=== PATIENT | female | born 1990 | race Caucasian/White ===

== ENCOUNTER 2019-11-04 08:14 | Outpatient (CLI) | payer BC | END 2019-11-04 23:59 | disposition home or self-care (01) | LOC: CFH 08:14 | PROVIDERS: ATTEND Obstetrics & Gynecology | DX: Z34.82 Encounter for supervision of other normal pregnancy, second trimester (principal); Z3A.20 20 weeks gestation of pregnancy | CPT/HCPCS: 76805 ==

== ENCOUNTER 2020-03-08 10:54 | Outpatient (CLI) | payer BC ==
[~2020-03-08] VITALS: Ht 152.4 cm; Wt 63.1 kg
[2020-03-08 11:27] VITALS: BP 130/77
[2020-03-08] MEDS ORDERED: PREN1TAB10 PO (11:38)
== END 2020-03-08 11:58 | disposition home or self-care (01) ==
LOC: LDOP 10:54
PROVIDERS: ATTEND Obstetrics & Gynecology
DX: O26.893 Other specified pregnancy related conditions, third trimester (principal); Z3A.38 38 weeks gestation of pregnancy
CPT/HCPCS: 59025

== ENCOUNTER 2020-03-09 11:50 | Inpatient (IN) | payer BC ==
[~2020-03-09] VITALS: Ht 152.4 cm; Wt 63.2 kg
[~2020-03-09 11:50] MED LIST: PREN1TAB10 PO
[2020-03-09 12:17] VITALS: BP 120/67
[2020-03-09] MEDS ORDERED: LIDOCAINE 1%, 20ML ONE (14:44)
[2020-03-09] MEDS ORDERED: OXYTOCIN 30U/ 0.9% NaCL 500ML 500 ML ONE ×2 (14:44→21:33)
[2020-03-09] MEDS ORDERED: MISOPROSTOL 200 MCG TABLET ONE (14:44)
[2020-03-09] MEDS ORDERED: NEWBORN KIT ONE (14:44)
[2020-03-09] MEDS ORDERED: OXYTOCIN 30U/ 0.9% NaCL 500ML 500 ML IV ONE (15:00)
[2020-03-09] MEDS ORDERED: ONDANSETRON 2MG/ML, 2ML IVPush PRN (15:00)
[2020-03-09] MEDS ORDERED: TERBUTALINE 1 MG/ML, 1ML SQ PRN (15:00)
[2020-03-09] MEDS ORDERED: D5%-LACTATED RINGERS 1,000 ML IV SCH (15:00)
[2020-03-09] MEDS ORDERED: OXYTOCIN 30U/ 0.9% NaCL 500ML 500 ML IV PRN (15:00)
[2020-03-09] MEDS ORDERED: CALCIUM CARBONATE 500 MG TAB.CHEW PO PRN (15:00)
[2020-03-09] MEDS ORDERED: FENTANYL PF 100 MCG/2ML IVPush PRN (15:00)
[2020-03-09] MEDS ORDERED: TERBUTALINE 1 MG/ML, 1ML IVPush PRN (15:00)
[2020-03-09] MEDS ORDERED: FENTANYL PF 100 MCG/2ML IV PRN (15:00)
[2020-03-09] MEDS ORDERED: SODIUM CITRATE/CITRIC ACID 30 ML UDC PO PRN (15:00)
[2020-03-09 15:17] LABS: BASOPHILS % (AUTO) 1 % (0-1); EOSINOPHILS % (AUTO) 0 % (1-7); LYMPHOCYTES % (AUTO) 17 % (22-44); MEAN CORPUSCULAR HEMOGLOBIN 25.3 pg (27.0-34.8); MEAN CORPUSCULAR HGB CONC 32.5 g/dL (32.4-35.8); MEAN PLATELET VOLUME 8.2 fL (7.4-10.4); MONOCYTES % (AUTO) 7 % (2-9); NEUTROPHILS % (AUTO) 75 % (42-75); PLATELET COUNT 194 x10^3/uL (130-400); RED CELL DISTRIBUTION WIDTH 16.8 % (9.6-15.2)
[2020-03-09 15:22] LABS: MD NO
[2020-03-09] MEDS ORDERED: FENTANYL PF 100 MCG/2ML ONE (16:00)
[2020-03-09] MEDS: LACTATED RINGERS 1,000 ML IV SCH ×2 (16:30→19:01)
[2020-03-09] MEDS ORDERED: BUPIVACAINE 0.25% ONE (16:49)
[2020-03-09] MEDS ORDERED: FENTANYL/BUPIV./NS/PF 250 ML EPIDCONT ONE (16:50)
[2020-03-09] MEDS ORDERED: IBUPROFEN 800 MG TABLET ONE (22:35)
[2020-03-09] MEDS: IBUPROFEN 800 MG TABLET PO PRN (22:37)
[2020-03-09 23:00] VITALS: BP 116/78
[2020-03-09] MEDS ORDERED: ACETAMINOPHEN 325 MG TABLET PO PRN (23:00)
[2020-03-09] MEDS ORDERED: MISOPROSTOL 200 MCG TABLET SL PRN (23:00)
[2020-03-09] MEDS ORDERED: OXYTOCIN 30U/ 0.9% NaCL 500ML 500 ML IV SCH (23:00)
[2020-03-09] MEDS ORDERED: SIMETHICONE 80 MG CHEW TAB PO PRN (23:00)
[2020-03-10 03:00] VITALS: BP 112/75
[2020-03-10 06:25] LABS: BASOPHILS % (AUTO) 1 % (0-1); EOSINOPHILS % (AUTO) 1 % (1-7); LYMPHOCYTES % (AUTO) 14 % (22-44); MEAN CORPUSCULAR HEMOGLOBIN 25.2 pg (27.0-34.8); MEAN CORPUSCULAR HGB CONC 32.3 g/dL (32.4-35.8); MEAN PLATELET VOLUME 8.3 fL (7.4-10.4); MONOCYTES % (AUTO) 6 % (2-9); NEUTROPHILS % (AUTO) 78 % (42-75); PLATELET COUNT 176 x10^3/uL (130-400); RED BLOOD COUNT 4.19 x10^6/uL (3.82-5.3); RED CELL DISTRIBUTION WIDTH 16.6 % (9.6-15.2)
[2020-03-10 06:35] LABS: MD NO
[2020-03-10 08:00] VITALS: BP 104/72
[2020-03-10] MEDS: DOCUSATE 100 MG CAPSULE PO PRN (08:03)
[2020-03-10] MEDS: IBUPROFEN 800 MG TABLET PO PRN ×2 (08:03→17:06)
[2020-03-10] MEDS: PRENATAL VIT/IRON/FA 1 EACH TABLET PO SCH (08:03)
[2020-03-10 12:45] VITALS: BP 107/73
[2020-03-10 16:00] VITALS: BP 115/63
[2020-03-10 20:00] VITALS: BP 112/69
[2020-03-11] MEDS: IBUPROFEN 800 MG TABLET PO PRN (03:22)
[2020-03-11] MEDS: DOCUSATE 100 MG CAPSULE PO PRN (03:22)
[2020-03-11] MEDS: PRENATAL VIT/IRON/FA 1 EACH TABLET PO SCH (07:47)
[2020-03-11 07:55] VITALS: BP 126/86
== END 2020-03-11 14:25 | disposition home or self-care (01) | DRG 807 ==
LOC: LDOP 11:50 → LDIP 16:22 → 2NW 22:42
PROVIDERS: ADMIT Obstetrics & Gynecology; ATTEND Obstetrics & Gynecology
PROC: 10E0XZZ Delivery of Products of Conception, External Approach (ICD-10-PCS; principal; 2020-03-09)
PROC: 10907ZC Drainage of Amniotic Fluid, Therapeutic from Products of Conception, Via Natural or Artificial Opening (ICD-10-PCS; 2020-03-09)
PROC: 0UQMXZZ Repair Vulva, External Approach (ICD-10-PCS; 2020-03-09)
PROC: 3E0R3BZ Introduction of Anesthetic Agent into Spinal Canal, Percutaneous Approach (ICD-10-PCS; 2020-03-09)
PROC: 00HU33Z Insertion of Infusion Device into Spinal Canal, Percutaneous Approach (ICD-10-PCS; 2020-03-09)
DX: O77.0 Labor and delivery complicated by meconium in amniotic fluid (principal); Z37.0 Single live birth; Z3A.38 38 weeks gestation of pregnancy; O71.82 Other specified trauma to perineum and vulva
CPT/HCPCS: 36415; 76819; 85025; 86592; 86850; 86900; 87635; G0378; J3010; J2590; J7120